=== PATIENT | male | born 1990 | race Caucasian/White ===

== ENCOUNTER 2024-10-12 20:40 | Emergency (ER) | payer BC, SELFPAY ==
[2024-10-12 20:40] VITALS: BP 144/97; PULSE 105; RESP 16; TEMP 36.7; O2SAT 100; BMI 28.7
--- NOTE | 2024-10-12 20:45 | ED.VIS.CHEST ---
HPI History of Present Illness Chief Complaint: Palpitations [facility] Medical History (Updated 10/12/24 @ 20:57 by Kasia Gilman) Hypertension Audelia's disease Home Medications ?Medication ?Instructions ?Recorded ?Last Taken ?Type No Known/Unobtainable [No Known 06/05/15 Unknown History Home Medications] Allergy/AdvReac Type Severity Reaction Status Date / Time diphenhydramine HCl (From Allergy Other Verified 10/12/24 20:43 Benadryl) Social History (System 06/17/21 @ 14:46 by Coby Gaines) Smoking Status: Never smoker EXAM Physical Exam Const Vital Signs: 10/12/24 20:40 10/12/24 20:57 Temperature 98.1 F Temperature Source Temporal Pulse Rate 105 H Respiratory Rate 16 Respiratory Effort Normal Respiratory Pattern Normal Blood Pressure 144/97 H Blood Pressure Mean 112 Pulse Ox 100 Oxygen Delivery Method Room Air MDM MDM MDM Narrative Medical decision making narrative: HISTORY OF PRESENT ILLNESS: Chief complaint: Shortness of breath 33-year-old male with no significant past medical history presents with concern for multiple complaints including shortness of breath, palpitations. Patient states he presented secondary to shortness of breath. Notes 1-1/2 days of shortness of breath. Denies chest pain. Denies smoking. Denies fever. States he feels like crap. States he took his blood pressure because he is feeling so bad he notices 147/92. He also endorses palpitations. Denies any bleeding diathesis. Denies any recent vomiting or diarrhea. Denies any personal family history of [place]. Denies history of hypertension, high blood pressure type 2 diabetes. Denies any illicit drug use. He does endorse not having a bowel over the last 3 days he typically is a bowel with daily. His last bowel movement had no blood. Denies any abdominal pain to me. REVIEW OF SYSTEMS: Pertinent positives: Shortness of breath, palpitations, constipation Pertinent negatives: As per HPI PHYSICAL EXAM: Nursing triage notes reviewed, Vital signs reviewed Constitutional: please see mdm HENT: MMM Eyes: Pupils equal round and reactive to light, Extraocular muscles intact Neck: No stridor, no JVD, full neck ROM Lungs: Clear to auscultation, No wheezing or rales. No increased work of breathing, no conversational dyspnea, no accessory muscle use, no nasal flaring. No respiratory distress noted Heart: Regular rate and rhythm, No murmurs, No rubs and No gallops, 2+ distal pulses (radial, femoral, posterior tibial) in all extremities Abdomen: Soft, there is no tenderness, rigidity, rebound or guarding, no obvious peritoneal signs, no palpable pulsatile abdominal masses, no auscultated abdominal bruit : No CVAT Extremities: No edema Neuro: No new focal neurological deficits, cranial nerves II through XII intact, 5/5 strength in all present extremities. Intact sensation to light touch in all present extremities, 2+ reflexes bilateral patella tendons. Skin: No rash or lesions noted MEDICAL DECISION MAKING: Chief Complaint: please see HPI External records reviewed: Reviewed prior images Factors affecting care: none Social determinants of health: none History obtained from others: none Consults: none [facility] Narrative: The patient was initially hemodynamically stable, initial heart rate 105, saturating well on room air. No focal cardiopulmonary abnormalities noted on initial exam. Abdomen soft nontender with no peritoneal signs. I considered the following differential diagnosis: Arrhythmia, pneumonia, anemia, electrolyte disturbance, ACS, pneumothorax, PE I obtained a broad lab and imaging workup to further elucidate etiology of the patient's complaints. ALL IMAGES (IF OBTAINED) HAVE BEEN PERSONALLY REVIEWED AND INTERPRETED BY MYSELF. I have personally reviewed the patient's chest x-ray. Chest x-ray is unremarkable for pulmonary edema, pneumothorax, pneumonia or focal cardiopulmonary abnormality. EKG with normal sinus rhythm rate of 81, normal axis, normal intervals, QTc 429, no STEMI D-dimer negative making VTE less likely CBC without leukocytosis, severe anemia, no thrombocytopenia. CMP without evidence of acute kidney injury, significant electrolyte abnormality, anion gap to suggest end organ hypo-perfusion, no evidence of metabolic acidosis with a normal bicarbonate, no evidence of hepatobiliary obstructive pathology. High-sensitivity troponin is negative, no evidence of myocardial ischemia The synthesis of the patient's history, physical exam, labs images suggest no acute life-limiting etiology. A single troponin should suffice in ruling out ACS given duration of illness and lack of chest pain. I have a low suspicion for ACS. Patient is appropriate discharge home and close outpatient PCP follow-up. Strict return precautions were discussed. A bowel regimen is recommended given constipation The patient and/or family, caregivers express understanding. The patient and/or family, caregivers agrees with the plan. Shared decision making: I will have a discussion with the patient and or visitors regarding risk/benefits of further testing or admission. They will be made aware of of the risk/benefits inherent in this decision they will be given the opportunity to voice understanding. Total critical care time today provided was at least 0 minutes. This excludes separately billable procedures. Critical care time (if documented) is secondary to the patient having high probability of clinically significant/life threatening deterioration in the patient's condition which required my urgent intervention. Impression: 1. Dyspnea 2. Constipation 3. Palpitations Dispo: Discharge home This note was generated with [employer] dictation software. It may contain incorrect words, spelling, and punctuation that were not noted in review of the chart prior to signing. Lab Data Labs: Laboratory Results - last 24 hr 10/12/24 10/12/24 20:50 21:23 WBC 6.7 RBC 5.02 Hgb 15.1 Hct 44.1 MCV 87.8 MCH 30.1 MCHC 34.2 RDW Std Deviation 39.3 RDW Coeff of Sandee 12.2 Plt Count 201 MPV 11.7 Immature Gran % (Auto) 0.500 Neut % (Auto) 54.4 Lymph % (Auto) 33.5 [place] % (Auto) 8.4 Eos % (Auto) 2.3 Baso % (Auto) 0.9 Absolute Neuts (auto) 3.6 Absolute Lymphs (auto) 2.23 Nucleated RBC % 0 D-Dimer Quant (PE/DVT) 0.27 Sodium 139 Potassium 3.5 Chloride 102 Carbon Dioxide 23.6 Anion Gap 13 BUN 13 Creatinine 0.97 Estim Creat Clear Calc 121.26 Est GFR (MDRD) Non-Af 107 BUN/Creatinine Ratio 13.2 Glucose 107 H Calcium 9.4 Total Bilirubin 0.31 AST 36 ALT 45 Alkaline Phosphatase 107 Troponin T High Sens < 6 Total Protein 7.9 Albumin 4.9 Globulin 3.0 Albumin/Globulin Ratio 1.6 Radiography Diagnostic Testing: Clinical Impression(s) from Imaging Studies Chest X-Ray 10/12/24 21:07 IMPRESSION: No Acute Findings. [facility] T[facility] Chief Complaint: Palpitations ED Provider: Tuan Camarillo Dx/Rx/DC Orders Prescriptions: No Action No Known Home Medications Primary Care Provider: Care Physician,Laura Primary Referrals: Mikel Samano DO [Non-Staff] - Print Language: [place] Zealander
--- NOTE | 2024-10-12 20:49 | EKG12_ITS ---
Test Reason : PALPITATIONS Blood Pressure : */* mmHG Vent. Rate : 81 BPM Atrial Rate : 81 BPM P-R Int : 144 ms QRS Dur : 92 ms QT Int : 370 ms P-R-T Axes : 46 47 6 degrees QTcB Int : 429 ms Normal sinus rhythm Normal ECG Confirmed by HARLEY ANDRADE, ISADORA ([id number]), associate entertainment editor JOAQUIN SERVIN ([id number]) on 10/14/2024 9:23:13 AM Referred By: CHRISTY Confirmed By: ISADORA SOUZA MD
--- NOTE | 2024-10-12 21:07 | RAD_ITS ---
PROCEDURE: CHEST 1 VIEW (PORTABLE) 10/12/2024 REASON FOR EXAM: SHORTNESS OF BREATH TECHNIQUE: Frontal view of the chest. COMPARISON: None FINDINGS: Hardware: None Heart: The heart size is normal. Lungs: The lungs are clear. Bones: The bones are unremarkable. Other: RAD/Chest 1 View (Portable) IMPRESSION: No Acute Findings. Reading Location: [facility]
[2024-10-12 21:26] LABS: D-Dimer Quantitative (DVT/PE) 0.27 FEU/ug/m (0.27-0.49)
[2024-10-12 21:27] LABS: Absolute Lymphocyte Count 2.23 X10^3/uL (0.83-4.51); Absolute Neutrophil Count 3.6 X10^3/uL (2.0-7.7); Basophil# 0.06 X10^3/uL; Basophil% 0.9 % (0-1); Eosinophil# 0.15 X10^3/uL; Eosinophils% 2.3 % (0-5); Hematocrit 44.1 % (40-54); Hemoglobin 15.1 g/dL (13.0-16.5); Lymphocyte # 2.23 X10^3/ul (0.83-4.51); Lymphocyte % 33.5 % (19-41); Mean Corp Hgb Conc 34.2 g/dL (32-36); Mean Corpuscular Hgb 30.1 pg (27.0-32.0); Mean Corpuscular Volume 87.8 fL (80-94); Mean Platelet Vol. 11.7 fl (6.2-12.0); Monocyte# 0.56 X10^3/uL; Monocyte% 8.4 % (0-10); NRBC Flagged by Analyzer 0 % (0-5); Neutrophil # 3.63 X10^3/uL (2.7-7.7); Neutrophil % 54.4 % (47-70); Platelet Count 201 K/mm3 (150-450); RBC Distribution Width CV 12.2 % (11.6-14.6); RBC Distribution Width SD 39.3 fl (35.1-43.9); Red Blood Count 5.02 M/mm3 (4.6-6.2); White Blood Count 6.7 K/mm3 (4.4-11.0)
[2024-10-12 21:42] LABS: ALB/GLOB Ratio 1.6 RATIO (0.9-2.4); AST(SGOT) 36 U/L (<=37); Alanine Aminotransfer ALT/SGPT 45 U/L (<=46); Albumin, Serum 4.9 g/dL (3.5-5.0); Alkaline Phosphatase 107 U/L (40-129); Anion Gap 13 (5-15); BUN 13 mg/dL (4-19); BUN/Creat Ratio 13.2 RATIO (10-20); Calcium,Total 9.4 mg/dL (7.6-11.0); Carbon Dioxide 23.6 mmol/L (21.0-32.0); Chloride 102 mmol/L (98-108); Creatinine, Serum 0.97 mg/dL (0.70-1.20); EST Glomerular Filtration Rate 107 (>60); Estimated Creatinine Clearance 121.26 ml/min (50-250); Glucose 107 mg/dL (70-99); Potassium 3.5 mmol/L (3.3-5.1); Protein, Total 7.9 g/dL (5.9-8.4); Sodium Level 139 mmol/L (133-145); Total Bilirubin 0.31 mg/dL (0.00-1.30)
[2024-10-12 21:54] LABS: Troponin T High Sensitivity < 6 ng/L (<=22)
[2024-10-12 22:38] VITALS: BP 124/78; PULSE 66; RESP 14; TEMP 36.8; O2SAT 100
== END 2024-10-12 22:39 | disposition home or self-care (01) ==
PROVIDERS: Emergency Provider Emergency Medicine; Visit Provider Emergency Medicine
DX: R00.2 Palpitations (principal); R06.02 Shortness of breath; K59.00 Constipation, unspecified
CPT/HCPCS: 71045; 80053; 84484; 85025; 85379; 93005; 99284; A4216